=== PATIENT | female | born 1955 | race Caucasian/White ===

== ENCOUNTER 2016-12-06 16:32 | Emergency (ER) | payer OTHER ==
[~2016-12-06] VITALS: Ht 162.6 cm; Wt 122.0 kg
[~2016-12-06 16:32] MED LIST: ABILIFY5 MG PO; ALBUTEROL2.5 MG/3 M IN; ALLERGY10 M1 PO; AMBIEN CR12.5 MG PO; AMBIEN5 MG PO; AMOXICILLIN/CL875 MG PO; ANTI-FUNGAL12 EX; ASPIRIN LOW DOS81 MG PO; BUSPIRONE10 MG OR; BUSPIRONE5 MG PO; CARBAMAZEPIN200 MG PO; CARBATROL300 MG PO; CARTIA XT300 MG/24 PO; CELEXA40 MG PO; CEPHALEXIN500 MG PO; CIPROFLOXACN500 MG PO; CITALOPRAM40 MG PO; COLACE; COUMADIN5 MG PO; DIFLUCAN150 MG OR; DIGOX0.125 MG PO; DILTIAZEM240 MG PO; DOXYCYCL HYC100 MG PO; ELIMITE5 % EX; ENBREL25 MG/0.5 SC; ENBREL50 MG/ML SC; EQ NICOTIN21 MG/24 H TD; FIORICET PO; FLONASE NASAL50 MCG; FLOVENT HFA110 MCG IN; HUMIRA10 MG/0.2 IJ; HYDRALAZINE HCL25 MG PO; HYDROCHLOROT12.5 M1 PO; HYDROCHLOROT25 MG PO; HYDROXYZ HCL25 MG PO; HYDROXYZ PAM50 M1 OR; IBUPROFEN600 MG PO; LISINOP/HCTZ1 TAB PO; LORTAB5 PO; LOSARTAN POT25 MG PO; MEDDOSEPAK PO; MET12.5TAB PO; METFORMIN500 M2 PO; METFORMIN500 MG PO; METFORMIN850 MG PO; METOPROL TAR25 M1 PO; METOPROL TAR25 MG PO; METRONIDAZOL500 MG PO; NAPROSYN500 MG PO; NORCO1 TA1 PO; PHENERGAN SUP12.5 MG RE; PHENERGAN12.5 MG/TA PO; PREDNISONE20 MG PO; PREDNISONE50 MG PO; PROAIR HFA IN; PROPAFENONE150 M1 PO; PROPAFENONE225 MG PO; ROBITUSSIN AC10 ML PO; SIMVASTATIN PO; SIMVASTATIN10 MG PO; SIMVASTATIN40 MG OR; SIMVASTATIN40 MG PO; SINGULAIR10 MG PO; SOLU-MEDROL125 MG IM; TEGRETOL200 MG PO; TRAZODONE100 MG PO; VALACYCLOVIR500 MG PO; VENTOLIN HFA IN; VICODIN1 TAB PO; VISINE TEAR1 OD; WARFARIN5 MG PO; ZEBUTAL 50-325-1 CAP PO; ZITHROMAX500 MG PO; ZOLPIDEM5 MG PO; [UNRECOGNIZED DRUG - OTHER] PO
[2016-12-06 17:43] LABS: HEMATOCRIT 41.2 % (37.0-47.0); HEMOGLOBIN 13.4 g/dl (12.0-16.0); IMMATURE GRANULOCYTES 0.3 % (0.0-1.0); MEAN CELL VOLUME 93.8 fL CALC (80.0-100.0); MEAN CORPUSCULAR HGB 30.5 pG CALC (26.0-32.0); MEAN CORPUSCULAR HGB CONC 32.5 g/L CALC (32.0-36.0); NEUT# 5.1 thou/uL (2.00-7.15); RED BLOOD COUNT 4.39 mill/uL (4.20-5.60); RED CELL DISTRI WIDTH 12.8 % (11.5-15.5)
[2016-12-06 17:49] LABS: INTERNATIONAL NORMALIZED RATIO 1.9 RATIO (0.7-1.3)
[2016-12-06 17:55] LABS: ALBUMIN 4.3 g/dL (3.2-5.0); ALKALINE PHOSPHATASE 54 u/l (38-126); ANION GAP 14 (6-22 (CALC)); BILIRUBIN, TOTAL 0.6 mg/dL (0.0-1.4); BUN 11 mg/dL (7-17); BUN/CREATININE RATIO 12 (12-20 (CALC)); CALCIUM 9.4 mg/dL (8.4-10.2); CARBON DIOXIDE 31 mmol/l (22-30); CHLORIDE 102 mmol/l (95-108); CREATININE 0.9 mg/dL (0.5-1.0); GFR > 60 ML/MIN (>=60 (CALC)); GFR FOR AFR.AMER. > 60 ML/MIN (>=60 (CALC)); GLUCOSE 92 mg/dL (65-105); POTASSIUM 3.4 mmol/l (3.5-5.1); SGOT/AST 52 u/l (14-36); SGPT/ALT 39 u/l (9-52); SODIUM 144 mmol/l (137-146); TOTAL PROTEIN 7.2 g/dL (6.3-8.2)
[2016-12-06] MEDS ORDERED: CARDIZEM60 MG PO (18:06)
[2016-12-06] MEDS ORDERED: LITHIUM CARB300 MG PO (18:06)
[2016-12-06] MEDS ORDERED: TOPAMAX100 MG PO (18:07)
[2016-12-06] MEDS ORDERED: PROPAFENONE150 M1 PO (18:08)
[2016-12-06] MEDS ORDERED: LOSARTAN POT25 MG PO (18:09)
[2016-12-06] MEDS ORDERED: COUMADIN5 MG PO (18:11)
[2016-12-06] MEDS ORDERED: WARFARIN7.5 MG PO (18:12)
[2016-12-06 18:16] VITALS: BP 116/67
== END 2016-12-06 18:26 | disposition home or self-care (01) | DRG 149 ==
LOC: ED 16:32
PROVIDERS: Emergency Medicine
DX: R42 Dizziness and giddiness (principal); I48.91 Unspecified atrial fibrillation; F41.9 Anxiety disorder, unspecified; Z79.01 Long term (current) use of anticoagulants

== ENCOUNTER 2017-10-10 14:00 | Emergency (ER) | payer OTHER ==
[~2017-10-10] VITALS: Ht 162.6 cm; Wt 121.0 kg
[~2017-10-10 14:00] MED LIST changes: +CARDIZEM60 MG PO; +LITHIUM CARB300 MG PO; +TOPAMAX100 MG PO; +WARFARIN7.5 MG PO
[2017-10-10] MEDS ORDERED: VOLTAREN - GENE75 MG PO (15:55)
[2017-10-10] MEDS ORDERED: LORTAB 5/3255 MG PO (15:55)
[2017-10-10 16:02] VITALS: BP 109/60
== END 2017-10-10 16:10 | disposition home or self-care (01) | DRG 563 ==
LOC: ED 14:00
DX: S92.352A Displaced fracture of fifth metatarsal bone, left foot, initial encounter for closed fracture (principal); S46.911A Strain of unspecified muscle, fascia and tendon at shoulder and upper arm level, right arm, initial encounter; W01.0XXA Fall on same level from slipping, tripping and stumbling without subsequent striking against object, initial encounter; Y92.89 Other specified places as the place of occurrence of the external cause

== ENCOUNTER 2017-11-29 12:47 | Emergency (ER) | payer OTHER ==
[~2017-11-29] VITALS: Ht 162.6 cm; Wt 100.0 kg
[~2017-11-29 12:47] MED LIST changes: +LORTAB 5/3255 MG PO; +VOLTAREN - GENE75 MG PO
[2017-11-29 13:59] LABS: INTERNATIONAL NORMALIZED RATIO 2.4 RATIO (0.7-1.3); PROTHROMBIN TIME 27.7 SECONDS (9.0-12.5)
[2017-11-29] MEDS ORDERED: ULTRAM50 M1 PO (14:41)
[2017-11-29] MEDS ORDERED: FLEXERIL PO (14:41)
[2017-11-29 14:48] VITALS: BP 112/64
== END 2017-11-29 15:08 | disposition home or self-care (01) | DRG 552 ==
LOC: ED 12:47
PROVIDERS: Emergency Medicine
DX: M54.5 Low back pain (principal); M47.9 Spondylosis, unspecified
CPT/HCPCS: J2060

== ENCOUNTER 2018-01-23 15:52 | Emergency (ER) | payer OTHER ==
[~2018-01-23] VITALS: Ht 162.6 cm; Wt 127.0 kg
[~2018-01-23 15:52] MED LIST changes: +FLEXERIL PO; +ULTRAM50 M1 PO
[2018-01-23] MEDS ORDERED: TRAZODONE100 MG PO (16:31)
[2018-01-23] MEDS ORDERED: ULTRAM50 MG PO (16:58)
[2018-01-23 17:00] VITALS: BP 123/68
== END 2018-01-23 17:18 | disposition home or self-care (01) | DRG 563 ==
LOC: ED 15:52
DX: S92.522A Displaced fracture of middle phalanx of left lesser toe(s), initial encounter for closed fracture (principal); G89.29 Other chronic pain; M25.551 Pain in right hip; W22.09XA Striking against other stationary object, initial encounter; Y93.89 Activity, other specified; Y92.009 Unspecified place in unspecified non-institutional (private) residence as the place of occurrence of the external cause